=== PATIENT | female | born 1995 | race African-American/Black ===

== ENCOUNTER 2017-09-06 18:10 | Emergency (ER) | payer SELFPAY ==
--- NOTE | 2017-09-06 19:19 | ER Document Report ---
ED Medical Screen (RME) - General Chief Complaint: Abdominal Pain Stated Complaint: ABDOMINAL PAIN Time Seen by Provider: 09/06/17 19:18 Notes: Patient states she had a faint home test that was positive. She is not having some lower abdominal pain. No vaginal discharge or bleeding. TRAVEL OUTSIDE OF THE [place] IN LAST 30 DAYS: No - Related Data Allergies/Adverse Reactions: No Known Allergies Allergy (Unverified 09/06/17 18:11) Past Medical History Renal/ Medical History: Denies: Hx Peritoneal Dialysis Physical Exam - Vital signs Vitals: Temp Pulse Resp BP Pulse Ox 99.5 F 87 16 141/90 H 99 09/06/17 18:19 09/06/17 18:19 09/06/17 18:19 09/06/17 18:19 09/06/17 18:19 Course - Vital Signs Vital signs: Temp Pulse Resp BP Pulse Ox 99.5 F 87 16 141/90 H 99 09/06/17 18:19 09/06/17 18:19 09/06/17 18:19 09/06/17 18:19 09/06/17 18:19
--- NOTE | 2017-09-06 20:30 | ER Document Report ---
ED GI/ - General Chief Complaint: Abdominal Pain Stated Complaint: ABDOMINAL PAIN Time Seen by Provider: 09/06/17 19:18 Notes: Patient is a 22-year-old female that comes emergency department for chief complaint of lower abdominal intermittent cramping pain that started early today and also vaginal bleeding. Patient states she has had spotting vaginal bleeding but she bled heavier at one point and passed one clot. She had a positive home test although she states it was a faint positive. LMP was about 2 weeks ago. She denies nausea or vomiting, fever or chills, flank pain, vaginal discharge. Patient denies any medications, she does not smoke, only past medical history reported is tonsillectomy. TRAVEL OUTSIDE OF THE [place] IN LAST 30 DAYS: No - Related Data Allergies/Adverse Reactions: No Known Allergies Allergy (Unverified 09/06/17 18:11) Past Medical History - General Information source: Patient - Social History Smoking Status: Never Smoker Drug Abuse: None Lives with: Family Family History: Reviewed & Not Pertinent Patient has suicidal ideation: No Patient has homicidal ideation: No - Medical History Medical History: Negative Renal/ Medical History: Denies: Hx Peritoneal Dialysis Surgical Hx: Negative - Immunizations Immunizations up to date: Yes Hx Diphtheria, Pertussis, Tetanus Vaccination: Yes Review of Systems - Review of Systems Constitutional: No symptoms reported EENT: No symptoms reported Cardiovascular: No symptoms reported Respiratory: No symptoms reported Gastrointestinal: See HPI Genitourinary: See HPI Female Genitourinary: See HPI Musculoskeletal: No symptoms reported Skin: No symptoms reported Hematologic/Lymphatic: No symptoms reported Neurological/Psychological: No symptoms reported Physical Exam - Vital signs Vitals: Temp Pulse Resp BP Pulse Ox 99.5 F 87 16 141/90 H 99 09/06/17 18:19 09/06/17 18:19 09/06/17 18:19 09/06/17 18:19 09/06/17 18:19 Interpretation: Normal - General General appearance: Appears well, Alert - HEENT Head: Normocephalic, Atraumatic Eyes: Normal Pupils: PERRL - Respiratory Respiratory status: No respiratory distress Chest status: Nontender Breath sounds: Normal Chest palpation: Normal - Cardiovascular Rhythm: Regular Heart sounds: Normal auscultation Murmur: No - Abdominal Inspection: Normal Distension: No distension Bowel sounds: Normal Tenderness: Tender - Mild lower abdominal and pelvic tenderness bilaterally, nonspecific, no guarding, soft and benign abdomen otherwise Organomegaly: No organomegaly - Back Back: Normal, Nontender - Extremities General upper extremity: Normal inspection, Nontender, Normal color, Normal ROM , Normal temperature General lower extremity: Normal inspection, Nontender, Normal color, Normal ROM , Normal temperature, Normal weight bearing - Neurological Neuro grossly intact: Yes Cognition: Normal Orientation: AAOx4 Valery Coma Scale Eye Opening: Spontaneous Valery Coma Scale Verbal: Oriented Valery Coma Scale Motor: Obeys Commands Valery Coma Scale Total: 15 Speech: Normal Motor strength normal: LUE, RUE, LLE, RLE Sensory: Normal - Psychological Associated symptoms: Normal affect, Normal mood - Skin Skin Temperature: Warm Skin Moisture: Dry Skin Color: Normal Course - Re-evaluation Re-evalutation: Patient well-appearing on exam, she does have bilateral lower abdominal pain in the pelvic area, no guarding, vital signs unremarkable. CBC shows mild leukocytosis, with her abdominal exam and vital signs this is nonspecific. Urinalysis unremarkable, chemistry unremarkable. HCG is negative. I discussed this with patient, workup to this point, I recommended pelvic examination and ultrasound to further evaluate her dysfunctional uterine bleeding, patient declined. I discussed follow-up, treatment with Toradol if needed for her symptoms, return precautions. Patient states understanding and agreement. - Vital Signs Vital signs: Temp Pulse Resp BP Pulse Ox 98.3 F 79 18 125/85 99 09/06/17 22:15 09/06/17 22:15 09/06/17 22:15 09/06/17 22:15 09/06/17 22:15 - Laboratory Result Diagrams: 09/06/17 20:20 09/06/17 20:20 Laboratory results interpreted by me: 09/06/17 09/06/17 20:09 20:20 WBC 12.7 H MCV 79 L MCH 25.7 L RDW 14.9 H Absolute Neutrophils 8.5 H Urine Urobilinogen 2.0 H Ur Leukocyte Esterase TRACE H Discharge - Discharge Clinical Impression: Vaginal bleeding, Lower abdominal pain Condition: Stable Disposition: HOME, SELF-CARE Additional Instructions: Your test is negative, your workup does not show any concerning findings at this time. There are variety of things that can cause dysfunctional uterine bleeding, see additional instructions below, follow-up with [facility] referral. Take the Toradol if needed for pain/cramps. Return if you worsen including vomiting, severe pain, fever 100.4 or greater, heavy bleeding with dizziness, passing out, or any other concerning symptoms. Dysfunctional Uterine Bleeding You're having an abnormal pattern of bleeding from the uterus. We call this dysfunctional uterine bleeding. It is most often caused by a hormone imbalance. Most often this is temporary and no cause is found. There's no evidence of , tumors, or infection as a cause. Dysfunctional uterine bleeding is especially common at times when the normal menstrual cycle is disturbed -- whether by recent , use of control pills or hormones, or impending menopause. Some medical problems lead to dysfunctional bleeding, such as obesity or being very underweight, stress, or thyroid problems. In many cases, the menstrual cycle will return to normal without any treatment. Where the bleeding is significant, high-dose estrogen will usually stop the bleeding within a day of two. A cycle or two of hormones ( control pills) can help restore the uterus to normal. In some patients where bleeding is severe or resistant to treatment, a D&C is required. Treatment for anemia may be required if bleeding is severe. You should rest and avoid intercourse until the bleeding is controlled. Call the doctor or return for re-examination if you feel faint, have increasing pain, or have a major increase in the amount of bleeding. Prescriptions: Ketorolac Tromethamine [Toradol 10 mg Tablet] 10 mg PO Q8HP PRN #24 tablet PRN Reason: Referrals: [facility] [Provider Group] - Follow up as needed
[2017-09-06 20:43] LABS: ABSOLUTE BASOPHILS # (AUTO) 0.1 10^3/uL (0.0-0.2); ABSOLUTE EOSINOPHILS # (AUTO) 0.2 10^3/uL (0.0-0.6); ABSOLUTE LYMPHOCYTES (AUTO) 3.3 10^3/uL (0.5-4.7); ABSOLUTE MONOCYTES (AUTO) 0.6 10^3/uL (0.1-1.4); ABSOLUTE NEUT (AUTO) 8.5 10^3/uL (1.7-8.2); BASOPHILS % (AUTO) 0.7 % (0-2); EOSINOPHILS % (AUTO) 1.6 % (0-6); HEMATOCRIT 37.1 % (36.0-47.0); HEMOGLOBIN 12.1 g/dL (12.0-15.5); LYMPHOCYTES % (AUTO) 26.2 % (13-45); MEAN CORPUSCULAR HEMOGLOBIN 25.7 pg (27.0-33.4); MEAN CORPUSCULAR HGB CONC 32.5 g/dL (32.0-36.0); MEAN CORPUSCULAR VOLUME 79 fl (80-97); MONOCYTES % (AUTO) 4.8 % (3-13); PLATELET COUNT 371 10^3/uL (150-450); RED BLOOD COUNT 4.68 10^6/uL (3.72-5.28); RED CELL DISTRIBUTION WIDTH 14.9 % (11.5-14.0); SEGMENTED NEUTROPHILS % (AUTO) 66.7 % (42-78); TOTAL CELLS COUNTED % (AUTO) 100 %; WHITE BLOOD COUNT 12.7 10^3/uL (4.0-10.5)
[2017-09-06 20:51] LABS: ANION GAP 9 (5-19); BLOOD UREA NITROGEN 9 mg/dL (7-20); CALCIUM 9.3 mg/dL (8.4-10.2); CARBON DIOXIDE 25 mmol/L (22-30); CHLORIDE 107 mmol/L (98-107); GLUCOSE 85 mg/dL (75-110); SODIUM 140.8 mmol/L (137-145)
[2017-09-06] MEDS ORDERED: NAPROXEN 250 MG TABLET PO ONE (21:24)
[2017-09-06 21:49] LABS: APPEARANCE,URINE SLIGHTLY-CLOUDY; BILIRUBIN,URINE NEGATIVE (NEGATIVE); COLOR,URINE YELLOW; GLUCOSE, URINE NEGATIVE (NEGATIVE); KETONES,URINE NEGATIVE (NEGATIVE); LEUKOCYTE ESTERASE,URINE TRACE (NEGATIVE); NITRITE,URINE NEGATIVE (NEGATIVE); PROTEIN,URINE NEGATIVE (NEGATIVE); URINE SPECIFIC GRAVITY 1.014
[2017-09-06 22:17] VITALS: BP 125/85
== END 2017-09-06 22:16 | disposition home or self-care (01) ==
LOC: EEVIPCON 18:10 → ER 18:10
DX: N93.9 Abnormal uterine and vaginal bleeding, unspecified (principal); R10.30 Lower abdominal pain, unspecified
CPT/HCPCS: 36415; 80048; 81001; 84702; 85025; 86900; 86901; 99284